=== PATIENT | male | born 1945 | race Two or more races ===

== ENCOUNTER 2025-08-13 19:20 | Emergency (ER) | payer MEDICARE, MEDICAID, SELFPAY ==
[2025-08-13 19:21] VITALS: BMI 29.0
[2025-08-13 20:03] VITALS: BP 155/81; PULSE 97; RESP 18; TEMP 37.3; O2SAT 95
--- NOTE | 2025-08-13 20:07 | XR_ITS ---
Examination: Retroperitoneal ultrasound, complete Technique: Multiple high resolution grayscale images of the retroperitoneum obtained, including kidneys and bladder. Exam date and time:August 13, 2025 2037 hrs. Indications: Dysuria beginning 2 days ago. Findings: Right kidney 11.6 cm cortex 1.2 cm Left kidney 11.2 cm cortex 1.4 cm Lower pole 8 mm left renal calculus. No hydronephrosis No bladder mass or bladder calculi. Bladder prevoid volume 542 cc postvoid volume 439 cc Significant prostatomegaly, 6.4 x 5.1 x 4.5 cm no prostate nodules Impression: Bilateral renal cortical thinning 8mm nonobstructing left renal calculus Significant prostatomegaly, no prostate nodules
[2025-08-13 20:25] LABS: Collection Type, Urine Voided; Squamous Epithelial Cell,Urine 0 /hpf (0-5)
[2025-08-13 20:40] LABS: Bilirubin,Urine Negative (Negative); Blood,Urine Negative (Negative); Clarity,Urine Clear (Clear/Hazy); Color,Urine Lt-Yellow (Lt Yel-Yel); Glucose, Urine 4+ (Negative); Ketones,Urine Negative (Negative); Leukocyte Esterase,Urine Negative (Negative); Nitrite,Urine Negative (Negative); PH,Urine 6.0 (5.0-7.0); Protein,Urine Negative (Neg - Trace); RBC,Urine 4 /hpf (0-3); Specific Gravity,Urine 1.020 (1.001-1.035); Urobilinogen,Urine Negative mg/dL (0.0-1.0); WBC,Urine < 1 /hpf (0-5)
[2025-08-13 20:43] LABS: Basophils # (Auto) 0.1 Thou/mm3 (0.0-0.2); Basophils % (Auto) 1 % (0-2.5); Eosinophils # (Auto) 0.3 Thou/mm3 (0.0-0.5); Eosinophils % (Auto) 3 % (0-10); Hematocrit 43.2 % (41.0-53.0); Hemoglobin 14.6 g/dL (13.5-16.0); Immature Granulocytes Auto 0.07 Thou/mm3 (0.00-0.00); Lymphocytes # (Auto) 0.8 Thou/mm3 (1.0-4.8); Lymphocytes % (Auto) 11 % (10-50); Mean Corpuscular HGB Conc 33.8 g/dl (31.0-37.0); Mean Corpuscular Hemoglobin 31.5 pg (25.0-35.0); Mean Corpuscular Volume 93 fL (80-100); Monocytes # (Auto) 0.7 Thou/mm3 (0.0-0.8); Monocytes % (Auto) 10 % (0-12); Neutrophils # (Auto) 5.9 Thou/mm3 (1.8-7.7); Neutrophils % (Auto) 75 % (37-80); Nucleated Red Blood Cell # 0.00 Thou/mm3 (0.00-0.00); Nucleated Red Blood Cell % 0 /100 WBC (0); Platelet Count 145 Thou/mm3 (140-440); RDW Standard Deviation 44.5 fL (35.1-43.9); Red Blood Count 4.63 Miln/mm3 (4.50-5.90); White Blood Count 7.8 Thou/mm3 (3.8-10.6)
[2025-08-13 21:01] LABS: Alanine Aminotransferase 12 U/L (10-49); Albumin, Serum 4.5 gm/dL (3.4-4.8); Albumin/Globulin Ratio 1.8 (1.2-2.2); Alkaline Phosphatase 67 U/L (46-116); Anion Gap 8 (7-16); Aspartate Amino Transferase 30 U/L (0-34); BUN/Creatinine Ratio 21 Ratio (12-20); Bilirubin,Total 0.7 mg/dL (0.3-1.2); Blood Urea Nitrogen 31 mg/dL (9-23); Calcium 10.0 mg/dL (8.3-10.6); Calcium (Corrected) 10.0 mg/dL (8.5-10.1); Carbon Dioxide 29.7 mMol/L (20.0-31.0); Chloride 101 mMol/L (98-107); Creatinine (Component) 1.5 mg/dL (0.6-1.3); Estimated Creatinine Clearance 48.0 mL/min (>60); Globulin 2.5 gm/dL (2.3-3.5); Glucose 112 mg/dL (74-106); Osmolality,Calculated 285 (275-295); Potassium 4.6 mMol/L (3.4-5.1); Sodium 139 mMol/L (136-145); Total Protein 7.0 gm/dL (5.7-8.2); eGFR 46 See Note
--- NOTE | 2025-08-13 23:04 | PD.EDRME ---
Rapid Medical Screening Exam RME Arrival date/time: 08/13/25 19:20 This is a case of 80-year-old male who is here with history of hypertension came in in the emergency room due to painful urination blood in the urine and decreased urine output persistence of the symptoms thus patient decided to sought consult here in the emergency room Chief Complaint: Urogenital-Male Time Seen by Provider: 08/13/25 19:56 Vital signs: Vital Signs Temperature 99.2 F 08/13/25 20:03 Pulse Rate 97 08/13/25 20:03 Respiratory Rate 18 08/13/25 20:03 Blood Pressure 155/81 H 08/13/25 20:03 Pulse Oximetry (%) 95 08/13/25 20:03 Oxygen Delivery Method Room Air 08/13/25 20:03
--- NOTE | 2025-08-14 00:34 | PD.EDMALE ---
ED Male Genitalurinary RME/HPI General Chief complaint: Urogenital-Male Stated complaint: PAIN WITH URINATION, FREQUENT URINATION Time Seen by Provider: 08/13/25 19:56 Arrival date/time: 08/13/25 19:20 This is a case of 80-year-old male who is here with history of hypertension came in in the emergency room due to painful urination blood in the urine and decreased urine output persistence of the symptoms thus patient decided to sought consult here in the emergency room patient have history of diabetes hypertension and congestive heart failure currently taking Eliquis patient denies any abdominal pain pelvic pain lower back pain nausea vomiting fever or chills Limitations: no limitations RME / HPI RME / HPI Narrative: 08/13/25 19:20 This is a case of 80-year-old male who is here with history of hypertension came in in the emergency room due to painful urination blood in the urine and decreased urine output persistence of the symptoms thus patient decided to sought consult here in the emergency room Related Data Home Medications ?Medication ?Instructions ?Recorded ?Confirmed benazepril 10 mg tablet 10 mg PO QDAY High Blood Pressure 03/04/14 05/21/19 #0 tabs metformin 1,000 mg tablet 1,000 mg PO BID Diabetes ##0 03/04/14 05/21/19 metoprolol tartrate 50 mg tablet 50 mg PO BID High Blood Pressure 03/04/14 05/22/19 ##0 Previous Rx's ?Medication ?Instructions ?Recorded apixaban 5 mg tablet (Eliquis) 5 mg PO BID #60 tabs 05/25/19 furosemide 40 mg tablet (Lasix) 40 mg PO QDAY #30 tabs 05/25/19 cephalexin 500 mg tablet 500 mg PO TID #30 tabs 08/14/25 tamsulosin 0.4 mg capsule (Flomax) 0.4 mg PO QDAY #30 caps 08/14/25 Allergies Allergy/AdvReac Type Severity Reaction Status Date / Time No Known Allergies Allergy Verified 08/13/25 19:21 Review of Systems Review of Systems Systems Reviewed: All systems reviewed, normal except as documented Constitutional Constitutional: Reports system reviewed and no additional complaints, except as documented and Reports as per HPI Cardiovascular Cardiovascular: Reports system reviewed and no additional complaints, except as documented and Reports as per HPI Respiratory Respiratory: Reports system reviewed and no additional complaints, except as documented and Reports as per HPI Gastrointestinal Gastrointestinal: Reports system reviewed and no additional complaints, except as documented and Reports as per HPI Musculoskeletal Musculoskeletal: Reports system reviewed and no additional complaints, except as documented and Reports as per HPI Neurologic Neurologic: Reports system reviewed and no additional complaints, except as documented and Reports as per HPI Past Medical History Past Medical History NEUROLOGIC: Negative Neurological Disorders CARDIAC: Positive Cardiac Disorders, Atrial Fibrillation (05/19) and Hypertension; Negative Congestive Heart Failure RESPIRATORY: Positive Asthma (sob); Negative Chronic Obstructive Pulmonary Disease (COPD) GASTROINTESTINAL: Positive Obesity GENITOURINARY: Negative Renal Disease ENT: Positive Cataracts (2017) ENDOCRINE: Positive Diabetes Mellitus Type 2; Negative Diabetes Mellitus Type 1 HEMATOLOGIC: Negative Sickle Cell Disease OTHER HISTORY: Negative Autoimmune Disease, Anesthesia Reactions, Organ Transplant or Cancer Surgical History SURGICAL: Negative Cardiac Surgery, Abdominal Surgery, Nephrectomy, Joint Replacement, Neurologic Surgery or Organ Transplant Social History SMOKING STATUS: Never smoker SECOND HAND EXPOSURE: No ED Exam General Limitations: Present no limitations General appearance: Present alert, in no apparent distress and other (Awake alert oriented not in distress nontoxic looking well-hydrated well-nourished) Head Head exam: Present atraumatic, normocephalic and normal inspection Eye Eye exam: Present normal appearance, PERRL and EOMI ENT ENT exam: Present normal exam, normal oropharynx and mucous membranes moist Neck Neck exam: Present normal inspection, full ROM and trachea midline; Absent tenderness, meningismus, lymphadenopathy or thyromegaly Chest Chest inspection: Present normal inspection and symmetric chest wall rise; Absent tenderness Respiratory Respiratory exam: Present normal lung sounds bilaterally; Absent respiratory distress, wheezes, stridor, accessory muscle use or prolonged expiratory phase Cardiovascular Cardiovascular exam: Present regular rate, normal rhythm and normal heart sounds; Absent bradycardia, tachycardia, irregular rhythm, systolic murmur or diastolic murmur Abdominal Exam Abdominal exam: Present soft, normal bowel sounds and other (Bladder is not distended not tender no CVA tenderness); Absent distention, tenderness, guarding, rebound, rigidity, diminished bowel sounds, hyperactive bowel sounds, hypoactive bowel sounds, organomegaly, psoas sign, obturator sign, Acosta's sign, Rovsing's sign, tenderness at McBurney's Point or hernia Extremities Exam Extremities exam: Present normal inspection and full ROM Back Exam Back exam: Present normal inspection and full ROM Neurological Exam Neurological exam: Present alert, oriented X3, CN II-XII intact, normal gait and reflexes normal; Absent motor sensory deficit Psychiatric Psychiatric exam: Present normal affect and normal mood Skin Skin exam: Present warm, dry, intact and normal color Course Quality Measures none Orders Category Date Time Status US renal BI Stat Exams 08/13/25 20:07 Completed CBC Stat Lab 08/13/25 20:31 Completed CMP [Comprehensive Metabolic Panel] Stat Lab 08/13/25 20:31 Completed Urinalysis Stat Lab 08/13/25 20:09 Completed HYDROcodone*/APAP 5/325 [Dietrich 5/325] Med 08/14/25 00:20 Discontinued 1 tab PO X1 ONE Tamsulosin HCl [Flomax] Med 08/14/25 00:20 Discontinued 0.4 mg PO X1 ONE cefTRIAXone [Rocephin] 1,000 mg Med 08/14/25 00:32 Active Lidocaine 1% 20 ml [Xylocaine 1% 20 ML] 2.1 ml IM X1 cephALEXin [Keflex] Med 08/14/25 00:20 Discontinued 500 mg PO X1 ONE Vital Signs Vital signs: Vital Signs Temperature 99.2 F 08/13/25 20:03 Pulse Rate 97 08/13/25 20:03 Respiratory Rate 18 08/13/25 20:03 Blood Pressure 155/81 H 08/13/25 20:03 Pulse Oximetry (%) 95 08/13/25 20:03 Oxygen Delivery Method Room Air 08/13/25 20:03 Oxygen saturation is 95% in room air Urogenital - Male MDM Narrative MDM Narrative:: This is a case of 80-year-old male who is here with history of hypertension came in in the emergency room due to painful urination blood in the urine and decreased urine output persistence of the symptoms thus patient decided to sought consult here in the emergency room patient have history of diabetes hypertension and congestive heart failure currently taking Eliquis patient denies any abdominal pain pelvic pain lower back pain nausea vomiting fever or chills physical examination patient is awake alert oriented not in distress nontoxic looking well-hydrated well-nourished abdominal exam is benign nonsurgical no guarding no rebound no rigidity no tenderness negative psoas negative straight or negative Rovsing's negative McBurney's no Acosta sign negative CVA tenderness bladder is not distended not tender blood test showed no leukocytosis no anemia liver function is normal no electrolyte imbalance kidney function is elevated BUN is 30 creatinine is 1.[address] Terrazas patient condition history and physical examination stated the patient can still be discharged and follow-up with the product marketer patient ultrasound of the kidney showed a bilateral renal cortical thickening with nonobstructive left renal calculus with significant prostatomegaly but no prostate nodule at this point patient was given Dietrich for pain which improved the pain and started with ceftriaxone IM for urinary tract infection and Flomax patient will follow-up with PCP in 2 days for reevaluation and to be referred to product marketer to monitor kidney function and to further evaluation and treatment of chronic kidney disease importance to see a urologist for further evaluation and treatment of BPH to ruled out malignancy and nonobstructive kidney stone the son understood very well the discharge instruction at this point after giving Dietrich the patient condition improved and seems comfortable for any worsening symptoms or any emergent concern return precaution in the emergency room was advised Patient was discharged with comfortable condition walking with stable gait. Patient verbalized no further complains explained diagnosis and answered patient question. Patient is comfortable with the proposed management plan including the need to follow up with his/her primary care physician and any specialist if applicable Discussed patient for any urgent condition or worsening sx, He/She needed to go to emergency room immediately or call 911. Patient acknowledge the responsibility to follow up as instructed and to monitor her/his symptoms. For any persistence of the symptoms for more than 3-5 days return precaution advised. Discussed the result of the test and was given printed discharge instruction Patient data External records reviewed:: [facility] previous records Clinical information provided by:: patient Social determinants that could affect healthcare access:: none Patient has the following chronic illnesses:: None How is presenting disease/condition affected by chronic disease/condition?: no chronic disease Evaluation data The following diagnostics were reviewed and interpreted by me:: lab results and radiology exam(s) Lab and/or radiology exams considered but not ordered:: Reviewed Interpretation Summary: Reviewed Medications / Prescriptions Medications or Prescriptions considered but not ordered:: Given Medication administrations:: Medication Administration History Discontinued Medications Hydrocodone Bitart/Acetaminophen (Hydrocodone/Apap 5/325 Tablet) 1 tab PO X1 ONE Stop: 08/14/25 00:21 Cephalexin HCl (Cephalexin 250 Mg Capsule) 500 mg PO X1 ONE Stop: 08/14/25 00:21 Ceftriaxone Sodium 1,000 mg/ (Lidocaine HCl 2.1 ml) 0 mg IM X1 ONE Stop: 08/14/25 00:33 Tamsulosin HCl (Tamsulosin Hcl 0.4 Mg Capsule) 0.4 mg PO X1 ONE Stop: 08/14/25 00:21 Given Consultations Consultation(s) initiated? (list below): No Diagnosis Urogenital Male Differential Diagnosis: urinary tract infection, prostatitis, acute retention of urine and other (Kidney stone urinary tract infection) Most likely diagnosis given after review of the tests above:: Urinary tract infection BPH kidney stone Admission Indicated Admission indicated?: not indicated Explain why admission is indicated or not indicated:: Not indicated Admission Request Was there a request for admission?: No Admission Attestation Admission request attestation: Not indicated Disposition Plan Disposition Plan: Discharge Discharge Attestation Discharge Attestation: The patient and all family members were given an opportunity to ask questions and understood the discharge instructions. Discharge instructions specifically effects, indications for sooner follow up or return to the emergency department, and the expected course of current diagnosis. Patient condition: Stable Discharge Plan Plan Patient Disposition: HOME (Self Care) Patient condition on transfer: Stable Prescriptions/Referrals Prescriptions/Med Rec: New tamsulosin [Flomax] 0.4 mg capsule 0.4 mg PO QDAY Qty: 30 0RF cephalexin 500 mg tablet 500 mg PO TID Qty: 30 0RF No Action metformin 1,000 mg Tablet 1,000 mg PO BID Qty: 0 metoprolol tartrate 50 MG tablet 50 mg PO BID Qty: 0 benazepril 10 mg Tablet 10 mg PO QDAY Qty: 0 Eliquis 5 mg tablet 5 mg PO BID Qty: 60 0RF furosemide [Lasix] 40 mg tablet 40 mg PO QDAY Qty: 30 0RF Referrals: Ap Leonard [Primary Care Provider] - In 1 week Shaji Vargas MD [Physician, Urology] - 08/15/25 Referral Note: For further evaluation and treatment of BPH and nephrolithiasis Problem List Clinical Impression: Dysuria, Urinary tract infection, Chronic kidney disease, Benign prostatic hyperplasia (BPH) with straining on urination, Nephrolithiasis Patient/Caregiver Discharge Instructions Education Materials: Urinary Tract Infections in Men, Treating Kidney Stones ..., CKD Dc, ED BPH (Enlarged Prostate), ED Dysuria, Uncertain Cause (Adult) Additional Instructions: Follow-up with your primary care physician in 2 days for reevaluation and to be referred to urologist for further evaluation and treatment of nephrolithiasis and BPH and to rule out malignancy and to be referred to product marketer for further evaluation and treatment of chronic kidney disease and to monitor kidney function worsening symptoms or any emergent concerns such as unable to urinate blood in your urine call 911 or go to the nearest emergency room take your medication as directed finish the course of antibiotic Print Language: Maltese Stand Alone Forms: [employer] Award Info., Patient Portal Info Letter PA/STAPLE PROCESSING MACHINE OPERATOR Supervising Physician PA/STAPLE PROCESSING MACHINE OPERATOR Supervising Physician: dr tahmina donohue
[2025-08-14] MEDS: HYDROcodone/APAP 5/325 TABLET 1 TAB PO (00:38)
[2025-08-14] MEDS: TAMSULOSIN HCL 0.4 MG CAPSULE PO (00:39)
[2025-08-14] MEDS: cefTRIAXone 1,000 MG, LIDOCAINE 1% 20 ML 2.1 ML IM (00:40)
== END 2025-08-14 01:00 | disposition home or self-care (01) ==
PROVIDERS: Nurse Practitioner Family; Emergency Provider Emergency Medicine; PCP Physician Assistant
DX: N39.0 Urinary tract infection, site not specified (principal); N40.1 Benign prostatic hyperplasia with lower urinary tract symptoms; R39.16 Straining to void; E11.22 Type 2 diabetes mellitus with diabetic chronic kidney disease; I13.0 Hypertensive heart and chronic kidney disease with heart failure and stage 1 through stage 4 chronic kidney disease, or unspecified chronic kidney disease; I50.9 Heart failure, unspecified; N18.9 Chronic kidney disease, unspecified; N20.0 Calculus of kidney
CPT/HCPCS: 36415; 76770; 80053; 81001; 85025; 96372; 99283; J0696; J3490; A9270

== ENCOUNTER 2025-08-20 09:54 | Emergency (ER) | payer MEDICARE, MEDICAID, SELFPAY ==
[2025-08-20 09:54] VITALS: BMI 29.0
[2025-08-20 10:05] VITALS: BP 161/82; PULSE 87; RESP 18; TEMP 36.8; O2SAT 97
--- NOTE | 2025-08-20 10:14 | XR_ITS ---
Examination: CT abdomen and pelvis without contrast. Coronal 3-D reconstructions. Sagittal 2-D reconstructions. Date and time of exam:August 20, 2025, 10:50 AM, comparison May 21, 2019 Indications: Difficulty and painful urination beginning 10 days ago. CTDI: vol (mGy): 11.1 DLP: (mGycm): 631 Technique: Axial images of the abdomen have been obtained, 3 mm slice thickness Intravenous contrast material has not been administered. Low dose protocols were performed. One or more of the following dose reduction techniques were used; automated exposure control, adjustment of the mA and/or KV according to patient size, use of iterative reconstruction technique. Findings: Mild to moderate enlargement cardiac contour Liver is irregular in contour, no focal liver or splenic lesions Contracted gallbladder No pancreatic mass. Perinephric stranding, no renal or ureteral calculi, no hydronephrosis Aortic calcification no aneurysmal dilatation. Normal appendix Scattered colonic diverticulosis, no diverticulitis. Prostatomegaly, 5.2 cm prostate is irregular in contour No bladder mass or bladder calculi Grade 1 spondylolisthesis L5 on S1 Impression: Moderate enlargement cardiac contour Primary hepatocellular disease versus cirrhosis No renal or ureteral calculi, no hydronephrosis Normal appendix Significant prostatomegaly, prostate irregular in contour, recommend correlation with PSA No bladder mass or bladder calculi
--- NOTE | 2025-08-20 10:14 | PD.EDRME ---
Rapid Medical Screening Exam RME Arrival date/time: 08/20/25 09:54 80-year-old male presents to the emergency department for base of difficulty urinating and abdominal pain Chief Complaint: Urogenital-Male Vital signs: Vital Signs Temperature 98.2 F 08/20/25 10:05 Pulse Rate 87 08/20/25 10:05 Respiratory Rate 18 08/20/25 10:05 Blood Pressure 161/82 H 08/20/25 10:05 Pulse Oximetry (%) 97 08/20/25 10:05 Oxygen Delivery Method Room Air 08/20/25 10:05
[2025-08-20 10:40] LABS: Collection Type, Urine Clean Catch; Squamous Epithelial Cell,Urine 0 /hpf (0-5)
[2025-08-20 10:58] LABS: Bilirubin,Urine Negative (Negative); Blood,Urine Negative (Negative); Clarity,Urine Clear (Clear/Hazy); Color,Urine Lt-Yellow (Lt Yel-Yel); Culture Indicated,Urine Not Indicated; Glucose, Urine 4+ (Negative); Ketones,Urine Negative (Negative); Leukocyte Esterase,Urine Negative (Negative); Nitrite,Urine Negative (Negative); PH,Urine 5.5 (5.0-7.0); Protein,Urine Negative (Neg - Trace); RBC,Urine < 1 /hpf (0-3); Specific Gravity,Urine 1.014 (1.001-1.035); Urobilinogen,Urine Negative mg/dL (0.0-1.0); WBC,Urine < 1 /hpf (0-5)
--- NOTE | 2025-08-20 11:23 | PD.EDABDPN ---
ED Abdominal Pain RME/HPI General Chief Complaint: Urogenital-Male Stated complaint: UNABLE TO PEE AND FREQUENCY x 8 DAYS Time seen by provider: 08/20/25 11:11 Arrival date/time: 08/20/25 09:54 RME / HPI RME / HPI narrative: 80-year-old male patient with significant history of BPH, hypertension diabetes mellitus, was brought in by family for evaluation regarding worsening difficulty urinating, according to the family's chest drops. This been ongoing for more than 1 week, getting worse for the last 2 days. Also complained of dysuria. Patient was seen by PCP and was given medication which according to the family is not working. Family does not know the name of the medications. Related Data Home Medications ?Medication ?Instructions ?Recorded ?Confirmed benazepril 10 mg tablet 10 mg PO QDAY High Blood Pressure 03/04/14 05/21/19 #0 tabs metformin 1,000 mg tablet 1,000 mg PO BID Diabetes ##0 03/04/14 05/21/19 metoprolol tartrate 50 mg tablet 50 mg PO BID High Blood Pressure 03/04/14 05/22/19 ##0 Previous Rx's ?Medication ?Instructions ?Recorded apixaban 5 mg tablet (Eliquis) 5 mg PO BID #60 tabs 05/25/19 furosemide 40 mg tablet (Lasix) 40 mg PO QDAY #30 tabs 05/25/19 cephalexin 500 mg tablet 500 mg PO TID #30 tabs 08/14/25 tamsulosin 0.4 mg capsule (Flomax) 0.4 mg PO QDAY #30 caps 08/14/25 finasteride 5 mg tablet (Proscar) 5 mg PO QDAY #30 tabs 08/20/25 phenazopyridine 200 mg tablet 200 mg PO TID 6 doses #6 tabs 08/20/25 (Pyridium) tamsulosin 0.4 mg capsule (Flomax) 0.4 mg PO QDAY #30 caps 08/20/25 Allergies Allergy/AdvReac Type Severity Reaction Status Date / Time No Known Allergies Allergy Verified 08/20/25 09:56 Review of Systems Review of Systems Narrative Review of Systems: Review of system reviewed and within normal limits except mentioned in HPI ED Exam Narrative Physical exam: VITAL SIGNS: Reviewed. GENERAL APPEARANCE: Alert and interactive, follows commands, no acute distress, HEAD AND FACE: Non-traumatic. ENT: PERRL, pink conjunctivitis, eyelid no trauma, Mucous membrane moist. NECK: Supple, nontender, no nuchal rigidity. CHEST: No tenderness, no crepitus, no paradoxical movement, no retractions. LUNGS: Clear, well ventilated, symmetric, no rales, no wheezing, no ronchi, no stridor, good breath sounds bilaterally. HEART: Regular rate, regular rhythm, no murmur, no gallops. ABDOMEN: Soft, positive bowel sounds, nondistended, no guarding, nontender, no rebound, no masses, RECTAL: Deferred. GENITAL: Deferred. NEUROLOGICAL: Gross motor function intact sensory function intact, Appropriate for age. MUSCULOSKELETAL: low back nontender, full range of motion. EXTREMITIES: Nontender, full range of motion. SKIN: Color pink, dry, no rash, no lacerations, no abrasions, no contusions. LYMPHATICS: Deferred. Course Quality Measures none Orders Category Date Time Status CT abdomen pelvis wo con Stat Exams 08/20/25 10:14 Completed CBC Stat Lab 08/20/25 11:13 Completed Comprehensive Metabolic Panel Stat Lab 08/20/25 11:13 Completed UA, C/S IF [Urinalysis, C/S if Indicated] Stat Lab 08/20/25 10:20 Completed Phenazopyridine HCl [Pyridium] Med 08/20/25 11:32 Discontinued 200 mg PO X1 ONE Ringers Lactated 1000 ml [Lactated Ringers] 1,000 ml Med 08/20/25 11:32 Discontinued IV 999 mls/hr Tamsulosin HCl [Flomax] Med 08/20/25 11:32 Discontinued 0.4 mg PO X1 ONE Vital Signs Vital signs: Vital Signs Temperature 98.2 F 08/20/25 10:05 Pulse Rate 87 08/20/25 10:05 Respiratory Rate 18 08/20/25 10:05 Blood Pressure 161/82 H 08/20/25 10:05 Pulse Oximetry (%) 97 08/20/25 10:05 Oxygen Delivery Method Room Air 08/20/25 10:05 Abdominal Pain MDM MDM Narrative MDM Narrative:: 80-year-old male patient with significant history of BPH, hypertension diabetes mellitus, was brought in by family for evaluation regarding worsening difficulty urinating, according to the family's chest drops. This been ongoing for more than 1 week, getting worse for the last 2 days. Also complained of dysuria. Patient was seen by PCP and was given medication which according to the family is not working. Family does not know the name of the medications. Patient's laboratory workup all came back unremarkable and no UTI noted. CT scan of the abdomen and pelvis came back with Moderate enlargement cardiac contour Primary hepatocellular disease versus cirrhosis No renal or ureteral calculi, no hydronephrosis Normal appendix Significant prostatomegaly, prostate irregular in contour, recommend correlation with PSA No bladder mass or bladder calculi Patient was able to urinate more than 500 cc with no dysuria. Patient received Pyridium and Flomax. Advised the patient to follow-up with urologist for further evaluation regarding enlarged prostate. Patient and family agrees with the plan. Will send the patient home on Flomax and Proscar. Patient data External records reviewed:: None Clinical information provided by:: patient Social determinants that could affect healthcare access:: none Patient has the following chronic illnesses:: Hypertension diabetes mellitus COPD enlarged prostate How is presenting disease/condition affected by chronic disease/condition?: exacerbated by Evaluation data The following diagnostics were reviewed and interpreted by me:: lab results and radiology exam(s) Lab and/or radiology exams considered but not ordered:: None Interpretation Summary: See results MDM Medications / Prescriptions Medications or Prescriptions considered but not ordered:: None Medication administrations:: Medication Administration History Discontinued Medications Lactated Ringer's (Lactated Ringers) 1,000 mls @ 999 mls/hr IV .Q1H1M ONE Stop: 08/20/25 12:32 Last Infusion: 08/20/25 13:23 Dose: Infused Documented By: Admin: 08/20/25 11:53 Dose: 999 mls/hr Documented By: AUGUST Phenazopyridine HCl (Phenazopyridine Hcl 100 Mg Tablet) 200 mg PO X1 ONE Stop: 08/20/25 11:33 Last Admin: 08/20/25 11:53 Dose: 200 mg Documented By: AUGUST Tamsulosin HCl (Tamsulosin Hcl 0.4 Mg Capsule) 0.4 mg PO X1 ONE Stop: 08/20/25 11:33 Last Admin: 08/20/25 11:53 Dose: 0.4 mg Documented By: AUGUST IV fluids in Flomax and Pyridium Consultations Consultation(s) initiated? (list below): No Diagnosis Differential diagnosis abdominal pain: abdominal pain and constipation Most likely diagnosis given after review of the tests above:: Enlarged prostate, dysuria Admission Indicated Admission indicated?: not indicated Admission Request Was there a request for admission?: No Disposition Plan Disposition Plan: Discharge Discharge Attestation Discharge Attestation: The patient and all family members were given an opportunity to ask questions and understood the discharge instructions. Discharge instructions specifically effects, indications for sooner follow up or return to the emergency department, and the expected course of current diagnosis. Patient condition: Stable Discharge Plan Plan Patient Disposition: HOME (Self Care) Discharge Disposition comment: Stable Prescriptions/Referrals Prescriptions/Med Rec: New finasteride [Proscar] 5 mg tablet 5 mg PO QDAY Qty: 30 0RF phenazopyridine [Pyridium] 200 mg tablet 200 mg PO TID Qty: 6 0RF tamsulosin [Flomax] 0.4 mg capsule 0.4 mg PO QDAY Qty: 30 0RF No Action metformin 1,000 mg Tablet 1,000 mg PO BID Qty: 0 metoprolol tartrate 50 MG tablet 50 mg PO BID Qty: 0 benazepril 10 mg Tablet 10 mg PO QDAY Qty: 0 Eliquis 5 mg tablet 5 mg PO BID Qty: 60 0RF furosemide [Lasix] 40 mg tablet 40 mg PO QDAY Qty: 30 0RF tamsulosin [Flomax] 0.4 mg capsule 0.4 mg PO QDAY Qty: 30 0RF cephalexin 500 mg tablet 500 mg PO TID Qty: 30 0RF Referrals: Ap Leonard [Primary Care Provider] - In 1 week Problem List Clinical Impression: Enlarged prostate Patient/Caregiver Discharge Instructions Discharge Activity: activity as tolerated Education Materials: ED BPH (Enlarged Prostate) Additional Instructions: Thank you for the opportunity for serving you today. You are stable for discharged . You are advised to: Follow-up with your PCP in 1 to 2 days Return to ED for worsening of symptoms Increase oral fluids Take medication as prescribed As your PCP to refer you to a urologist Print Language: Finnish Stand Alone Forms: [employer]aliyah Award Info., Patient Portal Info Letter PA/CONCRETE BATCHER Supervising Physician DEWEY/JD Supervising Physician: MD Dany
[2025-08-20 11:26] LABS: Basophils # (Auto) 0.1 Thou/mm3 (0.0-0.2); Basophils % (Auto) 1 % (0-2.5); Eosinophils # (Auto) 0.2 Thou/mm3 (0.0-0.5); Eosinophils % (Auto) 2 % (0-10); Hematocrit 44.4 % (41.0-53.0); Hemoglobin 14.8 g/dL (13.5-16.0); Immature Granulocytes Auto 0.11 Thou/mm3 (0.00-0.00); Lymphocytes # (Auto) 0.7 Thou/mm3 (1.0-4.8); Lymphocytes % (Auto) 10 % (10-50); Mean Corpuscular HGB Conc 33.3 g/dl (31.0-37.0); Mean Corpuscular Hemoglobin 31.4 pg (25.0-35.0); Mean Corpuscular Volume 94 fL (80-100); Monocytes # (Auto) 0.6 Thou/mm3 (0.0-0.8); Monocytes % (Auto) 9 % (0-12); Neutrophils # (Auto) 5.5 Thou/mm3 (1.8-7.7); Neutrophils % (Auto) 77 % (37-80); Nucleated Red Blood Cell # 0.00 Thou/mm3 (0.00-0.00); Nucleated Red Blood Cell % 0 /100 WBC (0); Platelet Count 135 Thou/mm3 (140-440); RDW Standard Deviation 43.8 fL (35.1-43.9); Red Blood Count 4.71 Miln/mm3 (4.50-5.90); White Blood Count 7.2 Thou/mm3 (3.8-10.6)
[2025-08-20 11:47] LABS: Alanine Aminotransferase 11 U/L (10-49); Albumin, Serum 4.3 gm/dL (3.4-4.8); Albumin/Globulin Ratio 1.6 (1.2-2.2); Alkaline Phosphatase 67 U/L (46-116); Anion Gap 13 (7-16); Aspartate Amino Transferase 27 U/L (0-34); BUN/Creatinine Ratio 15 Ratio (12-20); Bilirubin,Total 0.7 mg/dL (0.3-1.2); Blood Urea Nitrogen 22 mg/dL (9-23); Calcium 9.9 mg/dL (8.3-10.6); Calcium (Corrected) 9.9 mg/dL (8.5-10.1); Carbon Dioxide 25.2 mMol/L (20.0-31.0); Chloride 100 mMol/L (98-107); Creatinine (Component) 1.5 mg/dL (0.6-1.3); Estimated Creatinine Clearance 48.0 mL/min (>60); Globulin 2.7 gm/dL (2.3-3.5); Glucose 175 mg/dL (74-106); Osmolality,Calculated 282 (275-295); Potassium 4.3 mMol/L (3.4-5.1); Sodium 138 mMol/L (136-145); Total Protein 7.0 gm/dL (5.7-8.2); eGFR 46 See Note
[2025-08-20] MEDS: TAMSULOSIN HCL 0.4 MG CAPSULE PO (11:53)
[2025-08-20] MEDS: PHENAZOPYRIDINE HCL 100 MG TABLET 200 MG PO (11:53)
[2025-08-20] MEDS: RINGERS LACTATED 1000 ML 1,000 ML 999 ML IV (11:53)
[2025-08-20 13:09] VITALS: BP 146/92; PULSE 80; RESP 16; TEMP 36.9; O2SAT 98
== END 2025-08-20 14:51 | disposition home or self-care (01) ==
PROVIDERS: Nurse Practitioner Primary Care; Emergency Provider Family Medicine; PCP Physician Assistant
DX: N40.1 Benign prostatic hyperplasia with lower urinary tract symptoms (principal); R30.0 Dysuria; E11.9 Type 2 diabetes mellitus without complications; I10 Essential (primary) hypertension; J44.9 Chronic obstructive pulmonary disease, unspecified; Z79.84 Long term (current) use of oral hypoglycemic drugs; Z79.01 Long term (current) use of anticoagulants; Z79.899 Other long term (current) drug therapy
CPT/HCPCS: 36415; 74176; 80053; 81001; 85025; 96360; 99283; J7120; A9270